=== PATIENT | male | born 1930 | race Caucasian/White ===

== ENCOUNTER → 2017-05-20 | Outpatient (REF) | payer MEDICARE, OTHER ==
[2017-05-20 17:21] LABS: IRON (FE) 67 UG/DL (65-175); PERCENT SATURATION 24.4 % (19.7-50.0); TOTAL IRON BINDING CAPACITY 275 UG/DL (250-450)
[2017-05-20 18:09] LABS: FOLATE 19.5 NG/ML; VITAMIN B12 LEVEL 546 PG/ML
== END ==
LOC: M LAB REF 16:31
DX: D64.9 Anemia, unspecified (principal)
CPT/HCPCS: 82746

== ENCOUNTER → 2018-11-21 | Outpatient (REF) | payer MEDICARE, OTHER ==
[~2018-11-21] MED LIST: ASPI81TA26 PO; BIMA01SOL OU; COMB0.2S OU; DOXA1TAB49 PO; HYDR-2541 PO; LIPI20TA PO; RAMI1CAP26 PO; SIMV20TA22 PO
== END ==
LOC: M LAB REF 16:49
PROVIDERS: ATTEND Internal Medicine
DX: R05 Cough (principal)

== ENCOUNTER → 2018-11-28 | Outpatient (REF) | payer MEDICARE, OTHER ==
[~2018-11-28] MED LIST changes: +SIMV20TA2 PO; -SIMV20TA22 PO
== END ==
LOC: M LAB REF 12:36
PROVIDERS: ATTEND Internal Medicine
DX: J18.9 Pneumonia, unspecified organism (principal)

== ENCOUNTER → 2018-12-11 | Outpatient (REF) | payer MEDICARE ==
[2018-12-11 16:59] LABS: C REACTIVE PROTEIN QUANTITATIV 2.14 MG/DL (0.00-0.30)
[2018-12-12 09:31] LABS: % LABILE ALKALINE PHOSPHATASE 81.2 %; LABILE ALKPHOS 178 U/L; STABLE ALKPHOS 41 U/L
[2018-12-14 12:46] LABS: TOTAL PROTEIN 6.3 GM/DL (6.4-8.2)
[2018-12-14 12:58] LABS: ALBUMIN 3.01 GM/DL (3.29-5.55); ALBUMIN % 47.8 % (55.8-66.1); ALPHA-1-GLOBULIN % 6.4 % (2.9-4.9); ALPHA-2-GLOBULINS 0.84 GM/DL (0.42-0.99); ALPHA-2-GLOBULINS % 13.4 % (7.1-11.8); BETA-1-GLOBULINS 0.32 GM/DL (0.28-0.60); BETA-1-GLOBULINS % 5.1 % (4.7-7.2); BETA-2-GLOBULINS 0.38 GM/DL (0.19-0.55); GAMMA GLOBULIN % 21.3 % (11.1-18.8); GAMMA GLOBULINS 1.34 GM/DL (0.65-1.58)
== END ==
LOC: M LAB REF 16:36
PROVIDERS: ATTEND Internal Medicine
DX: R53.1 Weakness (principal); R74.8 Abnormal levels of other serum enzymes; R70.0 Elevated erythrocyte sedimentation rate

== ENCOUNTER → 2019-07-09 | Outpatient (REF) | payer MEDICARE ==
[~2019-07-09] MED LIST changes: -SIMV20TA2 PO; +SIMV20TA22 PO
== END ==
LOC: M LAB REF 12:19
PROVIDERS: ATTEND Internal Medicine
DX: E03.9 Hypothyroidism, unspecified (principal)

== ENCOUNTER → 2019-08-31 | Outpatient (CLI) | payer MEDICARE | LOC: M RAD 12:53 | PROVIDERS: ATTEND Internal Medicine | DX: N50.89 Other specified disorders of the male genital organs (principal) ==

== ENCOUNTER → 2020-03-28 | Outpatient (REF) | payer MEDICARE ==
[2020-03-28 17:13] LABS: PERCENT SATURATION 20.1 % (19.7-50.0)
== END ==
LOC: M LAB REF 16:33
PROVIDERS: ATTEND Internal Medicine
DX: D64.9 Anemia, unspecified (principal)